=== PATIENT | female | born 1935 | race Caucasian/White ===

== ENCOUNTER 2020-08-11 20:07 | Emergency (ER) | payer MEDICARE, OTHER, SELFPAY ==
[2020-08-11 20:08] VITALS: BP 160/67; PULSE 76; RESP 18; TEMP 36.6; O2SAT 95; BMI 25.0
[2020-08-11 20:19] VITALS: BP 154/64; BP 155/64; PULSE 71; RESP 18; TEMP 39.6; O2SAT 96
--- NOTE | 2020-08-11 20:20 | CT_ITS ---
STUDY: CT BRAIN WITHOUT CONTRAST REASON FOR EXAM: Female, 85 years old. confusion RADIATION DOSAGE (If Supplied By Facility): CTDIvol = ( 44.99 ) mGy, DLP = ( 779.24 ) mGycm TECHNIQUE: Transaxial CT imaging of the brain was performed without administration of intravenous contrast material. Individualized dose optimization techniques were used for this CT. COMPARISON: No relevant priors. FINDINGS: Normal soft tissue structures. Normal calvarium. Normal size ventricles and extra-axial spaces for the patient''s age. Normal white matter tracts of the cerebral hemispheres. Normal basal ganglia and thalami. Normal brainstem. Normal cerebellum. There is no intracranial hemorrhage. There are no findings of an acute ischemic infarction. Normal visualized paranasal sinuses. CT/Brain/Head without Contrast IMPRESSION: Normal unenhanced CT scan of the brain. Electronically Signed: Evy Eldridge MD at 21:02 EDT , Service support ,
--- NOTE | 2020-08-11 20:21 | EKG12_ITS ---
Test Reason : GENERAL ILLNESS Blood Pressure : / mmHG Vent. Rate : 067 BPM Atrial Rate : 067 BPM P-R Int : 148 ms QRS Dur : 086 ms QT Int : 390 ms P-R-T Axes : 054 025 046 degrees QTc Int : 412 ms Normal sinus rhythm Normal ECG Confirmed by MAURICE PENA, KAYLYN ([id number]), legal editor DEJON BOND ([id number]) on 08/13/2020 10:46:34 A M Referred By: SELVIN Confirmed By:FRANCI RICHARDS MD
--- NOTE | 2020-08-11 20:25 | EX.ED.DYSGE1 ---
HPI History of Present Illness Chief Complaint: General Illness Informant: patient and family Narrative Narrative: Patient presents with generalized weakness, fever and some slight confusion. Daughter states the patient has not been her normal self today. She has been laying in bed for most of the day. She states that she just feels weak in her legs. She felt warm did not check her temperature at home. She has had a Covid vaccination. She admits to some slight phlegm in the back of her throat and only a minimal cough. She denies any dysuria or hematuria. No abdominal pain. She is normally fairly healthy and takes no medications. She was unable to get out of bed and actually fell out of bed but she denies any injury. She denies any head, neck or back pain. PFSH PFSH Home Medications doxycycline monohydrate 100 mg PO BID #20 capsule 08/11/20 [Rx Last Taken Unknown] Allergy/AdvReac Type Severity Reaction Status Date / Time No Known Allergies Allergy Verified 08/11/20 20:11 Social History Smoking Status: Never smoker ROS ROS ED Constitutional Constitutional ED: Reports fever(s) Eyes Eyes: Denies blurry vision, change in vision or diplopia ENT ENT ED: Denies ear pain, rhinorrhea or sore throat Cardiovascular Cardiovascular: Denies chest pain or palpitations Respiratory/Chest Respiratory/Chest: Reports cough Gastrointestinal Gastrointestinal: Denies abdominal pain, diarrhea, nausea or vomiting Genitourinary Genitourinary ED: Denies dysuria, hematuria or urinary frequency Musculoskeletal Musculoskeletal: Denies back pain or neck pain Integumentary Denies change in pigmentation or rash Neurologic Neurologic: Reports weakness Psychiatric Psychiatric: Denies anxiety or depression Endocrine Endocrinology: Denies polydipsia or polyuria EXAM Physical Exam Narrative Exam Narrative: Temperature noted at 103.2 ?F Const Vital Signs: 08/11/20 20:08 08/11/20 20:19 08/11/20 21:14 Temperature 98 F 103.2 F H 100.5 F H Temperature Source Temporal Oral Oral Pulse Rate 76 71 65 Respiratory Rate 18 18 18 Respiratory Pattern Normal Blood Pressure 160/67 H 154/64 H 131/74 H Blood Pressure Mean 98 94 93 Pulse Ox 95 96 95 Oxygen Delivery Method Room Air Room Air Room Air Positive well nourished and well developed General Appearance ED: well developed and NAD HEENT Reports moist mucous membranes normocephalic and atraumatic; Negative for trauma or tenderness Eyes PERRL and EOMs intact bilaterally Neck supple and no JVD Chest Wall Chest: Negative for tenderness Resp normal respiratory effort and clear to auscultation bilaterally Effort and Inspection: Negative for respiratory distress Cardio regular rate, regular rhythm and no murmurs Rate: regular rate Rhythm: regular rhythm GI soft to palpation, non-tender and non-distended Palpation: soft Back/Spine no CVA tenderness and no thoracic nor lumbar tenderness Cervical Spine: Negative for cervical spine tenderness Extremity normal to inspection and full ROM General Extremety ED: Negative for tenderness Neuro oriented x3, CN's II-XII intact bilaterally and no sensory deficits noted Sensorium / Orientation: awake and alert Motor Exam: strength 5/5 throughout Psych mental status grossly normal Skin no rashes or lesions noted MDM MDM MDM Narrative Medical decision making narrative: The patient was given Tylenol. Repeat temperature was 100.5 ?F. Her white blood count of 7.6. Her creatinine is 1.08. Glucose 152. Her lactate is normal at 2.0. Urinalysis is negative for infection but her chest x-ray does have evidence of pneumonia. This is likely causing all her symptoms. The patient feels better after the Tylenol. She does not want to stay in the hospital. I will give her oral antibiotics here and for home. She does not meet sepsis criteria at this time. She would like to be discharged to follow-up with her doctor. I feel that that is appropriate. Lab Data Labs: Laboratory Results - last 24 hr 08/11/20 08/11/20 08/11/20 20:30 20:30 20:30 WBC 7.6 RBC 4.27 Hgb 13.3 Hct 40.8 MCV 95.6 MCH 31.1 MCHC 32.6 RDW Std Deviation 47.5 H RDW Coeff of Delores 13.4 Plt Count 154 MPV 10.7 Immature Gran % (Auto) 0.400 Neut % (Auto) 80.0 H Lymph % (Auto) 9.6 L [place] % (Auto) 9.7 Eos % (Auto) 0.0 Baso % (Auto) 0.3 Absolute Neuts (auto) 6.1 Absolute Lymphs (auto) 0.73 L Nucleated RBC % 0 Sodium 133 L Potassium 4.1 Chloride 101 Carbon Dioxide 25.0 Anion Gap 7 BUN 19 H Creatinine 1.08 H Estim Creat Clear Calc 34.89 Est GFR (MDRD) Af Amer 62 Est GFR (MDRD) Non-Af 51 L BUN/Creatinine Ratio 17.6 Glucose 152 H Lactic Acid 2.0 Calcium 9.3 Total Bilirubin 0.80 Direct Bilirubin 0.20 AST 34 ALT 15 Alkaline Phosphatase 84 Total Protein 7.6 Albumin 3.1 L Globulin 4.5 H Urine Color Urine Clarity Urine pH Ur Specific [place] Urine Protein Urine Glucose (UA) Urine Ketones Urine Occult Blood Urine Nitrite Urine Bilirubin Urine Urobilinogen Ur Leukocyte Esterase Urine RBC Urine WBC Ur Squamous Epith Cells Urine Bacteria Urine Mucus 08/11/20 21:25 WBC RBC Hgb Hct MCV MCH MCHC RDW Std Deviation RDW Coeff of Delores Plt Count MPV Immature Gran % (Auto) Neut % (Auto) Lymph % (Auto) [place] % (Auto) Eos % (Auto) Baso % (Auto) Absolute Neuts (auto) Absolute Lymphs (auto) Nucleated RBC % Sodium Potassium Chloride Carbon Dioxide Anion Gap BUN Creatinine Estim Creat Clear Calc Est GFR (MDRD) Af Amer Est GFR (MDRD) Non-Af BUN/Creatinine Ratio Glucose Lactic Acid Calcium Total Bilirubin Direct Bilirubin AST ALT Alkaline Phosphatase Total Protein Albumin Globulin Urine Color Yellow Urine Clarity Sl. Cloudy Urine pH 5.0 Ur Specific [place] 1.025 Urine Protein 100 H Urine Glucose (UA) Normal Urine Ketones 15 H Urine Occult Blood 50 H Urine Nitrite Negative Urine Bilirubin Negative Urine Urobilinogen Normal Ur Leukocyte Esterase 100 H Urine RBC 0-5 SEEN Urine WBC 0-5 SEEN Ur Squamous Epith Cells 0 SEEN Urine Bacteria RARE Urine Mucus RARE Radiography Diagnostic Testing: Radiology Impression Brain CT 08/11/20 20:20 IMPRESSION: Normal unenhanced CT scan of the brain. Electronically Signed: Evy Eldridge MD at 21:02 EDT , Service support , Chest X-Ray 08/11/20 20:55 IMPRESSION: Focal moderate consolidation at the lateral lung base typical of pneumonia. Negative for pleural effusion. Normal cardiac size. Mild atherosclerotic changes of the thoracic aorta. Electronically Signed: Evy Eldridge MD at 21:08 EDT , Service support , EKG Initial EKG: Comments: Normal sinus rhythm with a rate of 67. No ST changes noted. QTc 412, [place] interval 148 Discharge Plan Triage Chief Complaint: General Illness Other Complaint: Weakness ED Provider: Fabricio Berg Dx/Rx/DC Orders Clinical Impression: Community acquired pneumonia Instructions: ED Pneumonia (Adult) Prescriptions: New doxycycline monohydrate 100 MG capsule 100 mg PO BID Qty: 20 RF: 0 Primary Care Provider: Abi Amor NP Referrals: Abi Amor [employer]ING [employer]ACH[employer], [employer]ING [employer]ACHINE [employer] [Primary Care Provider] - Disposition Disposition: Home, self care
--- NOTE | 2020-08-11 20:30 | ED.RN ---
NO OLD EKG IN MUSE
[2020-08-11] MEDS: Acetaminophen 325 MG Tablet 650 MG PO (20:35)
[2020-08-11 20:37] LABS: Absolute Lymphocyte Count 0.73 X10^3/uL (0.83-4.51); Absolute Neutrophil Count 6.1 X10^3/uL (2.0-7.7); Basophil# 0.02 X10^3/uL; Basophil% 0.3 % (0-1); Hematocrit 40.8 % (37-47); Hemoglobin 13.3 g/dL (12.0-15.0); Lymphocyte # 0.73 X10^3/ul (0.83-4.51); Lymphocyte % 9.6 % (19-41); Mean Corp Hgb Conc 32.6 g/dL (32-36); Mean Corpuscular Hgb 31.1 pg (27.0-32.0); Mean Corpuscular Volume 95.6 fL (81-99); Mean Platelet Vol. 10.7 fl (6.2-12.0); Monocyte# 0.74 X10^3/uL; Monocyte% 9.7 % (0-10); NRBC Flagged by Analyzer 0 % (0-5); Neutrophil # 6.12 X10^3/uL (2.7-7.7); Platelet Count 154 K/mm3 (150-450); RBC Distribution Width CV 13.4 % (11.6-14.6); RBC Distribution Width SD 47.5 fl (35.1-43.9); Red Blood Count 4.27 M/mm3 (4.2-5.4); White Blood Count 7.6 K/mm3 (4.4-11.0)
[2020-08-11 20:54] LABS: AST(SGOT) 34 U/L (15-37); Alanine Aminotransfer ALT/SGPT 15 U/L (13-56); Albumin, Serum 3.1 g/dL (3.2-5.0); Alkaline Phosphatase 84 U/L (45-117); Anion Gap 7 (5-15); BUN 19 mg/dL (7-18); BUN/Creat Ratio 17.6 RATIO (10-20); Calcium,Total 9.3 mg/dL (8.5-10.1); Chloride 101 mmol/L (98-107); Creatinine, Serum 1.08 mg/dL (0.55-1.02); EST Glomerular Filtration Rate 51 mL/min (>60); Est Glom Filt Rate - Afr Amer 62 mL/min (>60); Estimated Creatinine Clearance 34.89 ml/min; Globulin 4.5 g/dL (2.2-4.2); Glucose 152 mg/dL (74-106); Potassium 4.1 mmol/L (3.5-5.1); Protein, Total 7.6 g/dL (6.4-8.2); Sodium Level 133 mmol/L (136-145)
--- NOTE | 2020-08-11 20:55 | RAD_ITS ---
STUDY: X-RAY CHEST REASON FOR EXAM: Female, 85 years old. cough TECHNIQUE: 1 view COMPARISON: None. FINDINGS: The lung bello are well expanded with focal moderate consolidation of the lateral right lung base. There is no demonstrated pleural abnormality. Normal size heart. Normal mediastinum and ruth. Normal visualized pulmonary arteries. There is atherosclerotic calcification of the aortic arch with tortuosity. Degenerative changes of the thoracic spine with a dextrocurvature. Normal visualized ribs, clavicles, and shoulders. There is no demonstrated abnormality of the visualized soft tissue structures of the upper abdomen. RAD/Chest 1 View (Portable) IMPRESSION: Focal moderate consolidation at the lateral lung base typical of pneumonia. Negative for pleural effusion. Normal cardiac size. Mild atherosclerotic changes of the thoracic aorta. Electronically Signed: Evy Eldridge MD at 21:08 EDT , Service support ,
[2020-08-11 21:14] VITALS: BP 131/74; PULSE 65; RESP 18; TEMP 38.1; O2SAT 95
[2020-08-11 21:32] LABS: Squamous Epithelial Cells - UA 0 SEEN /hpf (5-10)
[2020-08-11 21:34] LABS: Color, Urine Yellow (Yellow); Glucose, Dipstick Normal (Normal); Ketone-Dipstick 15 mg/dl (Negative); Leukocyte Esterase-Dipstick 100 /ul (Negative); Nitrite-Dipstick Negative (Negative); Occult Blood-Urine 50 /ul (Negative); Protein-Dipstick 100 mg/dl (Negative); Specific Gravity, Urine 1.025 (1.002-1.030); Urine Bilirubin Dipstick Negative (Negative); Urine Clarity Sl. Cloudy (Clear); Urine Urobilinogen Normal (Normal)
[2020-08-11 21:45] LABS: Red Blood Cells-Urine 0-5 SEEN /hpf (0-5); White Blood Cells 0-5 SEEN /hpf (0-5)
[2020-08-11 21:46] LABS: Bacteria RARE /hpf (None Seen); Mucous, Urine RARE /hpf (<or=2+)
[2020-08-11] MEDS: Doxycycline 100 MG CAPSULE PO (22:14)
[2020-08-11 22:16] VITALS: BP 107/67; PULSE 76; RESP 16; TEMP 36.8; O2SAT 99
[2020-08-11 22:18] VITALS: TEMP 36.8
[2020-08-11 23:11] LABS: Reflex Lactate? N
== END 2020-08-11 22:19 | disposition home or self-care (01) ==
PROVIDERS: Emergency Provider Emergency Medicine; PCP Nurse Practitioner Family
DX: J18.9 Pneumonia, unspecified organism (principal)
CPT/HCPCS: 36415; 70450; 71045; 80048; 80076; 81001; 83605; 85025; 87040; 87086; 87088; 93005; 99285; A4216

== ENCOUNTER 2020-08-16 12:03 | Emergency (ER) | payer MEDICARE, OTHER, SELFPAY ==
[2020-08-16 12:04] VITALS: BP 140/69; PULSE 52; RESP 18; TEMP 36.5; O2SAT 94; BMI 25.0
--- NOTE | 2020-08-16 12:42 | EDS_ITS ---
HPI History of Present Illness Chief Complaint: Weakness Informant: patient and family Onset/Context/Timing Onset: Days Context: Gradual Onset Timing: Continuous Quality: Recent diagnosis CAP, generalized weakness, poor intake, KEITH Location: Generalized and respiratory Current Severity: Mild Maximum Severity: Moderate Worsened by: Activity Relieved by: Nothing Associated Symptoms Associated Symptoms: Upper respiratory symptoms Narrative Narrative: Patient is a 85-year-old woman who was seen last week and diagnosed with left lower lobe pneumonia. She was discharged to home on doxycycline. She presents because of generalized weakness, poor p.o. intake and shortness of breath. Daughter states they are here to have the oxygen level assessed. In light of her age and other symptoms daughter was informed that she will need a more complete work-up. There is no history of PE or DVT. She denies documented fever. Denies headache. She denies visual, ocular auditory symptoms. She does report rhinorrhea, congestion and postnasal drainage. She does report mild shortness of breath. She does have a cough which is nonproductive. Denies pleuritic chest pain. There may be slight increase shortness breath with activity. There is no chest discomfort with activity. She denies nausea, vomiting diarrhea. She denies dysuria, frequency, urgency or hematuria. She denies rash. Denies swelling of her lower extremities, discoloration or pain. Prior similar symptoms: Yes Recent Illness/Hospitalization: Yes PFSH PFS Home Medications doxycycline monohydrate 100 mg PO BID #20 capsule 08/11/20 [Rx Last Taken Unknown] Allergy/AdvReac Type Severity Reaction Status Date / Time No Known Allergies Allergy Verified 08/16/20 12:07 Social History (Updated 08/16/20 @ 12:[address] Arun Plaza MD) household members: none Smoking Status: Never smoker alcohol intake: current alcohol intake frequency: holidays/special occasions only substance use type: does not use ROS ROS ED Constitutional Constitutional ED: Denies chills, fever(s), subjective, sweats or weight loss Eyes Eyes: Denies blurry vision, change in vision or diplopia ENT ENT ED: Reports rhinorrhea and sore throat; Denies ear pain Cardiovascular Cardiovascular: Denies chest pain, orthopnea, palpitations, paroxysmal nocturnal dyspnea or racing heartbeat Respiratory/Chest Respiratory/Chest: Reports cough, dyspnea and dyspnea on exertion; Denies orthopnea, paroxysmal nocturnal dyspnea or sputum Gastrointestinal Gastrointestinal: Denies abdominal pain, constipation, diarrhea, nausea or vomiting Genitourinary Genitourinary ED: Denies dysuria, hematuria or urinary frequency Musculoskeletal Musculoskeletal: Denies arthralgias, back pain, myalgias or neck pain Integumentary Denies abscess or rash Neurologic Neurologic: Reports weakness; Denies headache(s) or paresthesias Endocrine Endocrinology: Denies polydipsia or polyuria EXAM Physical Exam Const Vital Signs: 08/16/20 12:04 08/16/20 13:50 Temperature 97.7 F L Temperature Source Temporal Pulse Rate 52 L Respiratory Rate 18 Respiratory Effort Normal Non-Labored Respiratory Pattern Normal Blood Pressure 140/69 H Blood Pressure Mean 92 Pulse Ox 94 Positive well nourished and well developed; Negative for cachectic, contractures or unkempt General Appearance ED: well developed and NAD; Negative for unkempt, cachectic or contractures Nutritional Appearance: Negative for cachectic HEENT Reports dry mucous membranes HEENT Narrative: Nares patent. Slight clear drainage. Posterior pharynx unremarkable. Ears appear normal. Face is symmetric. Mouth ED: Yes dry mucous membranes Mouth: dry mucous membranes Eyes PERRL and EOMs intact bilaterally Eyes Narrative: Patient either has muddy appearing sclera or jaundice causing scleral icterus. General Eye ED: Yes scleral icterus; Negative for pale conjunctiva Neck no lymphadenopathy, supple and no JVD Chest Wall inspection of chest normal Resp normal respiratory effort Effort and Inspection: Negative for pain with movement Auscultation: rales bilateral lower Cardio regular rate, regular rhythm, S1 normal heart sound, S2 normal heart sound and no murmurs GI normal to inspection, nondistended, normoactive bowel sounds and non-tender Palpation: soft Back/Spine no CVA tenderness Thoracic Spine / Upper Back: Negative for thoracic spinal tenderness or paraspinal muscle tenderness Extremity normal to inspection Extremity Narrative: There is no asymmetry, swelling, discoloration, leg vein distention, palpable cords or tenderness along the distribution of the deep venous system. General Extremety ED: Negative for edema or tenderness General Extremity: Negative for edema Neuro oriented x3, CN's II-XII intact bilaterally and no sensory deficits noted Sensorium / Orientation: alert Motor Exam: strength 5/5 throughout Psych mental status grossly normal Appearance: Negative for unkempt Skin no rashes or lesions noted and no wounds MDM MDM MDM Narrative Medical decision making narrative: Patient is bilaterally. Concern patient may have bilateral pneumonia. Appropriate blood work was ordered as well as chest x-ray. Need to evaluate for electrolyte abnormality and acute kidney injury since she reported decreased p.o. intake. Patient's infiltrate is larger. She is not hypoxic. Her creatinine is slightly elevated due to lack of p.o. intake. Lab Data Attestation: I reviewed the patient's lab results. Lab results narrative: CBC and differential are normal. She is not anemic. Electrolyte panels marked for an elevated creatinine of 1.37. Lactate is normal. Labs: Laboratory Results - last 24 hr 08/16/20 08/16/20 08/16/20 13:10 13:10 13:10 WBC 4.8 RBC 4.07 L Hgb 12.5 Hct 38.4 MCV 94.3 MCH 30.7 MCHC 32.6 RDW Std Deviation 47.8 H RDW Coeff of Delores 13.9 Plt Count 236 MPV 10.3 Immature Gran % (Auto) 1.400 H Neut % (Auto) 65.0 Lymph % (Auto) 16.7 L [place] % (Auto) 14.9 H Eos % (Auto) 1.2 Baso % (Auto) 0.8 Absolute Neuts (auto) 3.1 Absolute Lymphs (auto) 0.81 L Nucleated RBC % 0 Sodium 138 Potassium 3.2 L Chloride 105 Carbon Dioxide 23.0 Anion Gap 10 BUN 40 H Creatinine 1.37 H Estim Creat Clear Calc 27.51 Est GFR (MDRD) Af Amer 47 L Est GFR (MDRD) Non-Af 39 L BUN/Creatinine Ratio 29.2 H Glucose 109 H Lactic Acid 1.3 Calcium 9.6 Total Bilirubin 0.30 AST 51 H ALT 30 Alkaline Phosphatase 169 H Total Protein 7.1 Albumin 2.3 L Globulin 4.8 H Albumin/Globulin Ratio 0.5 L Radiography Chest X-Ray - ED: 1 View (Interpreted by me at 1345. There is an infiltrate right lower lobe.), Normal, Heart, Mediastinum, Bony Structures and Right Infiltrate Discharge Plan Triage Chief Complaint: Weakness ED Provider: Arun Plaza Dx/Rx/DC Orders Clinical Impression: Community acquired pneumonia, Acute kidney insufficiency Instructions: ED Pneumonia (Adult), ED Renal Insufficiency Prescriptions: No Action doxycycline monohydrate 100 MG capsule 100 mg PO BID Qty: 20 RF: 0 Primary Care Provider: Joselito Castro Referrals: Joselito Castro MD [Primary Care Provider] - Keep Nelda appointment (Creatinine is slightly elevated 1.37. This will need to be rechecked in 3 to 5 days.) Disposition Disposition: Home, self care
[2020-08-16 13:23] LABS: Absolute Lymphocyte Count 0.81 X10^3/uL (0.83-4.51); Absolute Neutrophil Count 3.1 X10^3/uL (2.0-7.7); Basophil# 0.04 X10^3/uL; Basophil% 0.8 % (0-1); Eosinophil# 0.06 X10^3/uL; Eosinophils% 1.2 % (0-5); Hematocrit 38.4 % (37-47); Hemoglobin 12.5 g/dL (12.0-15.0); Lymphocyte # 0.81 X10^3/ul (0.83-4.51); Lymphocyte % 16.7 % (19-41); Mean Corp Hgb Conc 32.6 g/dL (32-36); Mean Corpuscular Hgb 30.7 pg (27.0-32.0); Mean Corpuscular Volume 94.3 fL (81-99); Mean Platelet Vol. 10.3 fl (6.2-12.0); Monocyte# 0.72 X10^3/uL; Monocyte% 14.9 % (0-10); NRBC Flagged by Analyzer 0 % (0-5); Neutrophil # 3.14 X10^3/uL (2.7-7.7); Platelet Count 236 K/mm3 (150-450); RBC Distribution Width CV 13.9 % (11.6-14.6); RBC Distribution Width SD 47.8 fl (35.1-43.9); Red Blood Count 4.07 M/mm3 (4.2-5.4); White Blood Count 4.8 K/mm3 (4.4-11.0)
--- NOTE | 2020-08-16 13:35 | RAD_ITS ---
STUDY: X-RAY CHEST REASON FOR EXAM: Female, 85 years old. Recent diagnosis pneumonia, bilateral rales TECHNIQUE: 2 views COMPARISON: 08/11/2020 FINDINGS: There is now noted the patchy infiltrate seen in the right base and right lower lung field worsening since the previous examination. Otherwise the apices and left costophrenic angle are clear. The visualized bones are intact. The trachea is in the midline. Marked osteoporosis noted in the visualized spine. RAD/Chest PA and Lateral IMPRESSION: Infiltration the right base looks worse than seen before. Electronically Signed: Ligia Adamson, at 14:01 EDT Tel , Service support ,
[2020-08-16 13:39] LABS: ALB/GLOB Ratio 0.5 RATIO (0.9-2.4); AST(SGOT) 51 U/L (15-37); Alanine Aminotransfer ALT/SGPT 30 U/L (13-56); Albumin, Serum 2.3 g/dL (3.2-5.0); Alkaline Phosphatase 169 U/L (45-117); Anion Gap 10 (5-15); BUN 40 mg/dL (7-18); BUN/Creat Ratio 29.2 RATIO (10-20); Calcium,Total 9.6 mg/dL (8.5-10.1); Chloride 105 mmol/L (98-107); Creatinine, Serum 1.37 mg/dL (0.55-1.02); EST Glomerular Filtration Rate 39 mL/min (>60); Est Glom Filt Rate - Afr Amer 47 mL/min (>60); Estimated Creatinine Clearance 27.51 ml/min; Globulin 4.8 g/dL (2.2-4.2); Glucose 109 mg/dL (74-106); Potassium 3.2 mmol/L (3.5-5.1); Protein, Total 7.1 g/dL (6.4-8.2); Sodium Level 138 mmol/L (136-145)
[2020-08-16 13:50] LABS: Lactic Acid 1.3 mmol/L (0.4-1.9)
[2020-08-16 14:15] VITALS: BP 128/70; PULSE 87; RESP 16; O2SAT 97
== END 2020-08-16 14:17 | disposition home or self-care (01) ==
PROVIDERS: Emergency Provider Emergency Medicine; PCP Family Medicine
DX: J18.9 Pneumonia, unspecified organism (principal); N28.9 Disorder of kidney and ureter, unspecified
CPT/HCPCS: 36415; 71046; 80053; 83605; 85025; 99284